=== PATIENT | female | born 1975 | race Caucasian/White ===

== ENCOUNTER → 2021-05-08 | Outpatient (CLI) | payer OTHER ==
[~2021-05-08] MED LIST: SYNTHROID100 MCG PO; SYNTHROID75 MCG; XARELTO10 M1; XARELTO10 MG
== END | disposition home or self-care (01) ==
LOC: RAD 08:13
PROVIDERS: ATTEND Orthopaedic Surgery
DX: M25.559 Pain in unspecified hip (principal)

== ENCOUNTER 2021-05-16 10:00 | Inpatient (IN) | payer OTHER ==
[~2021-05-16] VITALS: Ht 160 cm; Wt 69.4 kg
[2021-05-16] MEDS ORDERED: SYNTHROID100 MCG PO (13:25)
[2021-05-22] MEDS ORDERED: SYNTHROID75 MCG (08:38)
[2021-05-22] MEDS ORDERED: XARELTO10 M1 (08:38)
== END 2021-05-24 17:55 | DRG 470 ==
LOC: SURH 05-21 09:00 → O/R 05-21 10:20 → SURG 05-21 17:09
PROVIDERS: ADMIT Orthopaedic Surgery; ATTEND Orthopaedic Surgery
PROC: 0SR906Z Replacement of Right Hip Joint with Oxidized Zirconium on Polyethylene Synthetic Substitute, Open Approach (ICD-10-PCS; principal; 2021-05-21 09:00)
DX: M16.11 Unilateral primary osteoarthritis, right hip (principal); D62 Acute posthemorrhagic anemia; Z96.641 Presence of right artificial hip joint; E03.8 Other specified hypothyroidism

== ENCOUNTER 2021-05-27 15:55 | Emergency (ER) | payer OTHER ==
[~2021-05-27] VITALS: Ht 160 cm; Wt 65.8 kg
[~2021-05-27 15:55] MED LIST changes: -XARELTO10 MG
[2021-05-27] MEDS ORDERED: XARELTO10 MG (16:01)
== END 2021-05-27 19:08 | disposition designated cancer center or children's hospital (05) ==
LOC: ER 15:55
DX: D64.9 Anemia, unspecified (principal); Z88.0 Allergy status to penicillin; Z96.641 Presence of right artificial hip joint

== ENCOUNTER → 2021-06-12 09:48 | Outpatient (CLI) | payer OTHER ==
[~2021-06-12 09:48] MED LIST changes: +XARELTO10 MG
== END | disposition home or self-care (01) ==
LOC: LAB 09:48
PROVIDERS: ATTEND Orthopaedic Surgery
DX: D64.89 Other specified anemias (principal); M06.4 Inflammatory polyarthropathy

== ENCOUNTER → 2021-08-02 11:26 | Outpatient (CLI) | payer OTHER | END | disposition home or self-care (01) | LOC: RAD 11:26 | PROVIDERS: ATTEND Orthopaedic Surgery | DX: M54.5 Low back pain (principal); M25.561 Pain in right knee; M25.562 Pain in left knee ==

== ENCOUNTER → 2021-10-02 | Outpatient (CLI) | payer OTHER | END | disposition home or self-care (01) | LOC: LAB 12:24 | PROVIDERS: ATTEND Orthopaedic Surgery | DX: D64.89 Other specified anemias (principal); M06.4 Inflammatory polyarthropathy ==

== ENCOUNTER 2022-01-15 11:13 | Outpatient (CLI) | payer OTHER | END 2022-01-15 11:30 | disposition home or self-care (01) | LOC: RAD 11:13 | PROVIDERS: ATTEND Orthopaedic Surgery | DX: M25.551 Pain in right hip (principal); Z96.641 Presence of right artificial hip joint; M70.61 Trochanteric bursitis, right hip; M76.11 Psoas tendinitis, right hip ==

== ENCOUNTER 2023-08-14 08:26 | Outpatient (CLI) | payer OTHER | END 2023-08-14 08:31 | disposition home or self-care (01) | LOC: RAD 08:26 | PROVIDERS: ATTEND Orthopaedic Surgery | DX: M25.552 Pain in left hip (principal); Z96.641 Presence of right artificial hip joint; M25.561 Pain in right knee; M25.562 Pain in left knee; M79.671 Pain in right foot; M79.672 Pain in left foot ==

== ENCOUNTER 2023-08-24 08:08 | Outpatient (CLI) | payer OTHER | END 2023-08-24 08:19 | disposition home or self-care (01) | LOC: MRI 08:08 | PROVIDERS: ATTEND Orthopaedic Surgery | DX: M51.27 Other intervertebral disc displacement, lumbosacral region (principal); Z88.0 Allergy status to penicillin | CPT/HCPCS: 72148 ==

== ENCOUNTER 2023-08-26 11:03 | Outpatient (CLI) | payer OTHER | END 2023-08-26 11:21 | disposition home or self-care (01) | LOC: TOM 11:03 | PROVIDERS: ATTEND Orthopaedic Surgery | DX: M21.751 Unequal limb length (acquired), right femur (principal) ==

== ENCOUNTER 2024-08-05 08:29 | Outpatient (CLI) | payer OTHER | END 2024-08-05 08:36 | disposition home or self-care (01) | LOC: RAD 08:29 | PROVIDERS: ATTEND Orthopaedic Surgery | DX: M25.561 Pain in right knee (principal); M25.562 Pain in left knee ==